=== PATIENT | male | born 1980 | race Hispanic/Latino ===

== ENCOUNTER 2019-02-19 12:45 | Emergency (ER) | payer OTHER ==
[2019-02-19] MEDS ORDERED: MORPHINE 4 MG/ML SYR ONE (13:17)
[2019-02-19] MEDS ORDERED: NA CHLORIDE 0.9% 2,000 ML ONE (13:17)
[2019-02-19] MEDS ORDERED: KETOROLAC 30 MG/ML INJ ONE (13:17)
[2019-02-19] MEDS ORDERED: ONDANSETRON 4 MG/2 ML VIAL ONE ×2 (13:17→14:31)
[2019-02-19 13:21] LABS: Absolute Lymphocytes (CBC) 2.9 K/uL (0.7-4.9); Basophils % 0.9 % (0-1.3); Hematocrit 45.4 % (39.6-49.0); Lymphocytes % 29.4 % (15.3-44.8); MPV 8.2 fL (7.6-11.3); RBC Red Blood Cell Count 4.66 M/uL (4.33-5.43)
[2019-02-19 13:43] LABS: Albumin 4.3 g/dL (3.4-5.0); Bilirubin Direct 0.2 mg/dL (0-0.2); Bilirubin Total 0.8 mg/dL (0.2-1.0); Potassium 4.1 mmol/L (3.5-5.1); Protein, Total 7.5 g/dL (6.4-8.2)
--- NOTE | 2019-02-19 14:03 | RAD REPORT ---
EXAM DESCRIPTION: CT - Stone Protocol - 02/19/2019 1:52 pm CLINICAL HISTORY: Abdominal pain. COMPARISON: None. TECHNIQUE: Computed axial tomography of the abdomen pelvis was obtained without oral or IV contrast. Lack of IV and oral contrast limits evaluation of solid organs, bowel, and vessels. Coronal reformat giselle images were obtained and reviewed. All CT scans are performed using dose optimization technique as appropriate and may include automated exposure control or mA/KV adjustment according to patient size. FINDINGS: Small bilateral renal calculi. Minimal left hydronephrosis. 2 millimeter calculus at the l eft ureteral vesicle junction. The liver, spleen, pancreas and adrenals appear grossly normal There is no evidence of diverticulitis. The appendix appears normal Small umbilical hernia contains fat IMPRESSION: 2 millimeter calculus left ureterovesical junction resulting in minimal left hydronephro sis
[2019-02-19 14:05] LABS: Urine Blood 2+ (NEG); Urine Glucose NEGATIVE (NEG); Urine Protein TRACE (NEG)
--- NOTE | 2019-02-19 14:21 | ER ---
Nurse's Notes [facility] Name: Dennis Mendiola Age: 39 yrs Sex: Male : 1980 Arrival Date: 02/19/2019 Time: 12:45 Bed 5 Private MD: Diagnosis: Hydronephrosis with renal and ureteral calculous obstruction-2 MM UVJ Presentation: 02/19 13:05 Presenting complaint: Patient states: LLQ pain that radiates towards L testicle, with ss nausea. Began 2 hours ago. Transition of care: patient was not received from another setting of care. Onset of symptoms was February 19, 2019. Risk Assessment: Do you want to hurt yourself or someone else? Patient reports no desire to harm self or others. Initial Sepsis Screen: Does the patient meet any 2 criteria? RR > 20 per min. Does the patient have a suspected source of infection? No. Patient's initial sepsis screen is negative. Care prior to arrival: None. 13:05 Acuity: ASHLEIGH 2 ss 13:05 Method Of Arrival: Ambulatory ss Historical: - Allergies: 13:19 No Known Allergies; ss - Home Meds: 13:19 None [Active]; ss - PMHx: 13:19 None; ss - PSHx: 13:19 None; ss - Immunization history:: Adult Immunizations unknown. - Social history:: Smoking status: Patient uses tobacco products, smokes one pack cigarettes per day. - Ebola Screening: : Patient denies exposure to infectious person Patient denies travel to an Ebola-affected area in the 21 days before illness onset. - Family history:: not pertinent. Screenin:33 Abuse screen: Denies threats or abuse. Denies injuries from another. Nutritional ph screening: No deficits noted. Tuberculosis screening: No symptoms or risk factors identified. Fall Risk None identified. Assessment: 13:31 General: Appears in no apparent distress. uncomfortable, Behavior is cooperative, ph appropriate for age, restless. Pain: Complains of pain in left flank and left lower quadrant. Neuro: Level of Consciousness is awake, alert, obeys commands, Oriented to person, place, time, situation. Cardiovascular: Capillary refill < 3 seconds in bilateral fingers Patient's skin is warm and dry. Respiratory: Airway is patent Respiratory effort is even, unlabored, Respiratory pattern is regular, symmetrical. GI: Abdomen is round non-distended, Bowel sounds present X 4 quads. Reports lower abdominal pain, constipation, nausea, Patient currently denies vomiting. : Reports pain in left flank(s), lower quadrant(s) Denies inability to void. Derm: Skin is intact, Skin is pink, warm \T\ dry. Musculoskeletal: Circulation, motion, and sensation intact. Range of motion: intact in all extremities. 14:30 Reassessment: Patient appears in no apparent distress at this time. Patient and/or ph family updated on plan of care and expected duration. Pain level reassessed. Patient is alert, oriented x 3, equal unlabored respirations, skin warm/dry/pink. Pt remains restless, c/o pain 8/10, denies nausea, ERP notified, see MAR. 16:05 Reassessment: Patient appears in no apparent distress at this time. Patient and/or ph family updated on plan of care and expected duration. Pain level reassessed. Pt asleep w/ equal and unlabored respirations, awakens easily, reports that pain has decreased, quickly falls back to sleep, pt did receive IV narcotics so will continue to monitor pt, will d/c when more awake and alert. Vital Signs: 13:19 BP 103 / 92; Pulse 78; Resp 24; Temp 97.0(TE); Pulse Ox 95% on R/A; Weight 106.59 kg; ss Height 5 ft. 7 in. (170.18 cm); Pain 10/10; 14:30 BP 112 / 89; Pulse 73; Resp 16; Pulse Ox 95% ; ph 15:30 BP 117 / 78; Pulse 71; Resp 16; Pulse Ox 99% on R/A; ph 16:44 BP 121 / 87; Pulse 72; Resp 18; Temp 97.5; Pulse Ox 98% on R/A; Pain 1/10; ph 13:19 Body Mass Index 36.81 (106.59 kg, 170.18 cm) ED Course: 12:45 Patient arrived in ED. as 13:06 Ricardo Nelson MD is Attending Physician. [facility] 13:12 Izabel Dejesus, SANDRA is Primary Nurse. 13:18 Triage completed. 13:19 Arm band placed on right wrist. 13:33 Patient has correct armband on for positive identification. Bed in low position. Call ph light in reach. Side rails up X 1. Pulse ox on. NIBP on. Door closed. Noise minimized. Warm blanket given. 13:33 Inserted saline lock: 20 gauge in left antecubital area, using aseptic technique. Blood ph collected. 13:52 CT Stone Protocol In Process Unspecified. EDMS 14:16 Phillip Woo MD is Referral Physician. pau 16:17 No provider procedures requiring assistance completed. ph 16:46 IV discontinued, intact, bleeding controlled, No redness/swelling at site. Pressure ph dressing applied. Administered Medications: 13:30 Drug: NS 0.9% 1000 ml Route: IV; Rate: 1 bolus; Site: left antecubital; ph 16:50 Follow up: Response: No adverse reaction; IV Status: Completed infusion; IV Intake: ph 1000ml 13:31 Drug: TORadol 30 mg Route: IVP; Site: left antecubital; ph 14:00 Follow up: Response: No adverse reaction; Pain is unchanged, physician notified ph 13:31 Drug: morphine 4 mg Route: IVP; Site: left antecubital; ph 14:00 Follow up: Response: No adverse reaction; Pain is unchanged, physician notified; RASS: ph Restless (+1); initial RASS +1 13:31 Drug: Zofran 4 mg Route: IVP; Site: left antecubital; ph 16:10 Follow up: Response: No adverse reaction ph 14:40 Drug: Dilaudid 1 mg Route: IVP; Site: left antecubital; sg 16:10 Follow up: Response: No adverse reaction; Pain is decreased; RASS: Light sedation (-2); ph initial RASS +1 14:40 Drug: Zofran 4 mg Route: IVP; Site: left antecubital; sg 16:10 Follow up: Response: No adverse reaction ph 14:40 Drug: Flomax 0.4 mg Route: PO; sg 16:17 Follow up: Response: No adverse reaction ph 14:41 Drug: Rocephin 1 grams Route: IV; Rate: per protocol; Site: left antecubital; sg 16:17 Follow up: Response: No adverse reaction; IV Status: Completed infusion ph 16:50 Not Given (Other Intervention Used): NS 0.9% 1000 ml IV at 1 bolus Per protocol; 1000 ph mL bolus Intake: 16:50 IV: 1000ml; Total: 1000ml. ph Outcome: 14:20 Discharge ordered by MD. mai 16:46 Discharged to home ambulatory. ph 16:46 Condition: improved 16:46 Discharge instructions given to patient, Instructed on discharge instructions, follow up and referral plans. medication usage, Demonstrated understanding of instructions, follow-up care, medications, Prescriptions given X 4. 16:51 Patient left the ED. ph Signatures: Dispatcher [employer] EDMS Farn Taylor RN RN Ricardo Alvarez MD MD cha Martinez, Amelia as Smirch, Shelby, RN RN ss Izabel Dejesus RN RN ph Corrections: (The following items were deleted from the chart) 16:10 16:10 Response: No adverse reaction; Pain is decreased; RASS: Light sedation (-2) ph ph
--- NOTE | 2019-02-19 14:21 | EDPHYS ---
Physician Documentation [facility] Name: Dennis Mendiola Age: 39 yrs Sex: Male : 1980 Arrival Date: 02/19/2019 Time: 12:45 Bed 5 Private MD: ED Physician Ricardo Nelson HPI: 02/19 14:13 This 39 yrs old Male presents to ER via Ambulatory with complaints of pau Abdominal Pain. 14:13 The patient presents with abdominal pain abdominal distention in the left lower pau quadrant. Onset: The symptoms/episode began/occurred just prior to arrival. The symptoms radiate to the left flank. Associated signs and symptoms: none. The symptoms are described as sharp. Modifying factors: The symptoms are alleviated by nothing, the symptoms are aggravated by nothing. Severity of pain: At its worst the pain was severe in the emergency department the pain is unchanged. The patient has not experienced similar symptoms in the past. Historical: - Allergies: 13:19 No Known Allergies; ss - Home Meds: 13:19 None [Active]; ss - PMHx: 13:19 None; ss - PSHx: 13:19 None; ss - Immunization history:: Adult Immunizations unknown. - Social history:: Smoking status: Patient uses tobacco products, smokes one pack cigarettes per day. - Ebola Screening: : Patient denies exposure to infectious person Patient denies travel to an Ebola-affected area in the 21 days before illness onset. - Family history:: not pertinent. ROS: 14:13 Constitutional: Negative for fever, chills, and weight loss, Eyes: Negative for injury, pau pain, redness, and discharge, ENT: Negative for injury, pain, and discharge, Neck: Negative for injury, pain, and swelling, Cardiovascular: Negative for chest pain, palpitations, and edema, Respiratory: Negative for shortness of breath, cough, wheezing, and pleuritic chest pain, Back: Negative for injury and pain, : Negative for injury, bleeding, discharge, and swelling, MS/Extremity: Negative for injury and deformity, Skin: Negative for injury, rash, and discoloration, Neuro: Negative for headache, weakness, numbness, tingling, and seizure, Psych: Negative for depression, anxiety, suicide ideation, homicidal ideation, and hallucinations, Allergy/Immunology: Negative for hives, rash, and allergies, Endocrine: Negative for neck swelling, polydipsia, polyuria, polyphagia, and marked weight changes, Hematologic/Lymphatic: Negative for swollen nodes, abnormal bleeding, and unusual bruising. 14:13 Abdomen/GI: Positive for abdominal pain, of the left lower quadrant. Exam: 14:13 Constitutional: This is a well developed, well nourished patient who is awake, alert, pau and in no acute distress. Head/Face: Normocephalic, atraumatic. Eyes: Pupils equal round and reactive to light, extra-ocular motions intact. Lids and lashes normal. Conjunctiva and sclera are non-icteric and not injected. Cornea within normal limits. Periorbital areas with no swelling, redness, or edema. ENT: Nares patent. No nasal discharge, no septal abnormalities noted. Tympanic membranes are normal and external auditory canals are clear. Oropharynx with no redness, swelling, or masses, exudates, or evidence of obstruction, uvula midline. Mucous membranes moist. Neck: Trachea midline, no thyromegaly or masses palpated, and no cervical lymphadenopathy. Supple, full range of motion without nuchal rigidity, or vertebral point tenderness. No Meningismus. Chest/axilla: Normal chest wall appearance and motion. Nontender with no deformity. No lesions are appreciated. Cardiovascular: Regular rate and rhythm with a normal S1 and S2. No gallops, murmurs, or rubs. Normal PMI, no JVD. No pulse deficits. Respiratory: Lungs have equal breath sounds bilaterally, clear to auscultation and percussion. No rales, rhonchi or wheezes noted. No increased work of breathing, no retractions or nasal flaring. Back: No spinal tenderness. No costovertebral tenderness. Full range of motion. Male : Normal genitalia with no discharge or lesions. Skin: Warm, dry with normal turgor. Normal color with no rashes, no lesions, and no evidence of cellulitis. MS/ Extremity: Pulses equal, no cyanosis. Neurovascular intact. Full, normal range of motion. Neuro: Awake and alert, GCS 15, oriented to person, place, time, and situation. Cranial nerves II-XII grossly intact. Motor strength 5/5 in all extremities. Sensory grossly intact. Cerebellar exam normal. Normal gait. Psych: Awake, alert, with orientation to person, place and time. Behavior, mood, and affect are within normal limits. 14:13 Abdomen/GI: Inspection: distension, Bowel sounds: normal, Palpation: moderate abdominal tenderness, Liver: no appreciated palpable abnormalities, Hernia: not appreciated. Vital Signs: 13:19 BP 103 / 92; Pulse 78; Resp 24; Temp 97.0(TE); Pulse Ox 95% on R/A; Weight 106.59 kg; ss Height 5 ft. 7 in. (170.18 cm); Pain 10/10; 14:30 BP 112 / 89; Pulse 73; Resp 16; Pulse Ox 95% ; ph 15:30 BP 117 / 78; Pulse 71; Resp 16; Pulse Ox 99% on R/A; ph 16:44 BP 121 / 87; Pulse 72; Resp 18; Temp 97.5; Pulse Ox 98% on R/A; Pain 1/10; ph 13:19 Body Mass Index 36.81 (106.59 kg, 170.18 cm) MDM: 13:06 Patient medically screened. [facility] 02/19 13:12 Order name: Basic Metabolic Panel; Complete Time: 13:51 [facility] 02/19 13:12 Order name: CBC with Diff; Complete Time: 13:51 [facility] 02/19 13:12 Order name: Creatinine for Radiology; Complete Time: 13:51 [facility] 02/19 13:12 Order name: Hepatic Function; Complete Time: 13:51 [facility] 02/19 13:12 Order name: Lipase; Complete Time: 13:51 [facility] 02/19 13:40 Order name: Urine Dipstick--Ancillary (enter results); Complete Time: 14:08 em1 02/19 13:12 Order name: CT Stone Protocol [facility] 02/19 13:12 Order name: IV Saline Lock; Complete Time: 13:15 [facility] 02/19 13:12 Order name: Labs collected and sent; Complete Time: 13:15 [facility] Administered Medications: 13:30 Drug: NS 0.9% 1000 ml Route: IV; Rate: 1 bolus; Site: left antecubital; ph 16:50 Follow up: Response: No adverse reaction; IV Status: Completed infusion; IV Intake: ph 1000ml 13:31 Drug: TORadol 30 mg Route: IVP; Site: left antecubital; ph 14:00 Follow up: Response: No adverse reaction; Pain is unchanged, physician notified ph 13:31 Drug: morphine 4 mg Route: IVP; Site: left antecubital; ph 14:00 Follow up: Response: No adverse reaction; Pain is unchanged, physician notified; RASS: ph Restless (+1); initial RASS +1 13:31 Drug: Zofran 4 mg Route: IVP; Site: left antecubital; ph 16:10 Follow up: Response: No adverse reaction ph 14:40 Drug: Dilaudid 1 mg Route: IVP; Site: left antecubital; sg 16:10 Follow up: Response: No adverse reaction; Pain is decreased; RASS: Light sedation (-2); ph initial RASS +1 14:40 Drug: Zofran 4 mg Route: IVP; Site: left antecubital; sg 16:10 Follow up: Response: No adverse reaction ph 14:40 Drug: Flomax 0.4 mg Route: PO; sg 16:17 Follow up: Response: No adverse reaction ph 14:41 Drug: Rocephin 1 grams Route: IV; Rate: per protocol; Site: left antecubital; sg 16:17 Follow up: Response: No adverse reaction; IV Status: Completed infusion ph 16:50 Not Given (Other Intervention Used): NS 0.9% 1000 ml IV at 1 bolus Per protocol; 1000 ph mL bolus Disposition: 02/19/19 14:20 Discharged to Home. Impression: Hydronephrosis with renal and ureteral calculous obstruction - 2 MM UVJ. - Condition is Stable. - Discharge Instructions: Kidney Stones, Kidney Stones, [id number], Hydronephrosis, Dietary Guidelines to Help Prevent Kidney Stones. - Prescriptions for Tylenol- Codeine #3 300-30 mg Oral Tablet - take 2 tablet by ORAL route every 6 hours As needed; 30 tablet. Zofran 4 mg Oral Tablet - take 1 tablet by ORAL route every 12 hours As needed; 20 tablet. Flomax 0.4 mg Oral Capsule, Sust. Release 24 hr - take 1 capsule by ORAL route once daily 1/2 hour following the same meal each day; 30 capsule. Cipro 500 mg Oral Tablet - take 1 tablet by ORAL route every 12 hours for 7 days; 14 tablet. - Medication Reconciliation Form, Thank You Letter, Antibiotic Education, Prescription Opioid Use form. - Follow up: Private Physician; When: 2 - 3 days; Reason: Recheck today's complaints, Continuance of care, Re-evaluation by your physician. Follow up: Phillip Woo MD; When: 2 - 3 days; Reason: Recheck today's complaints, Continuance of care, Re-evaluation by your physician. - Problem is new. - Symptoms have improved. Signatures: Dispatcher [employer] EDMS Fran Taylor RN RN Ricardo Alvarez MD MD cha Smirch, Shelby, RN RN Izabel Dejesus RN RN ph Corrections: (The following items were deleted from the chart) 16:51 14:20 02/19/2019 14:20 Discharged to Home. Impression: Hydronephrosis with renal and ph ureteral calculous obstruction - 2 MM UVJ. Condition is Stable. Forms are Medication Reconciliation Form, Thank You Letter, Antibiotic Education, Prescription Opioid Use. Follow up: Private Physician; When: 2 - 3 days; Reason: Recheck today's complaints, Continuance of care, Re-evaluation by your physician. Follow up: Phillip Woo; When: 2 - 3 days; Reason: Recheck today's complaints, Continuance of care, Re-evaluation by your physician. Problem is new. Symptoms have improved. pau
[2019-02-19] MEDS ORDERED: TAMSULOSIN 0.4 MG SR CAP ONE (14:31)
[2019-02-19] MEDS ORDERED: HYDROMORPHONE HCL 0.5 MG/0.5 ML INJ ONE (14:31)
[2019-02-19] MEDS ORDERED: CEFTRIAXONE/SWI 1gm 1 GM/10 ML SYR ONE (14:32)
[2019-02-19 17:14] VITALS: BP 121/87; TEMP 97.5; O2SAT 98
== END 2019-02-19 16:51 | disposition home or self-care (01) ==
LOC: ER 12:45
DX: N13.2 Hydronephrosis with renal and ureteral calculous obstruction (principal); F17.210 Nicotine dependence, cigarettes, uncomplicated
CPT/HCPCS: 96365; 96361; 85025; 80048; 36415; 80076; 81003; 83690; 76377; 74176; 96375; 99284; 96366; J1170; J0696; J7030; J2405 ×2